=== PATIENT | male | born 1975 | race African-American/Black ===

== ENCOUNTER 2020-12-20 20:10 | Emergency (ER) | payer MEDICAID | END 2020-12-20 20:47 | disposition left against medical advice (07) | LOC: ER 20:10 | DX: S00.81XA Abrasion of other part of head, initial encounter (principal); V49.49XA Driver injured in collision with other motor vehicles in traffic accident, initial encounter; Y93.89 Activity, other specified; Y92.89 Other specified places as the place of occurrence of the external cause; Y99.8 Other external cause status; Z87.891 Personal history of nicotine dependence; S13.4XXA Sprain of ligaments of cervical spine, initial encounter | CPT/HCPCS: 99281 ==